=== PATIENT | female | born 2000 | race Two or more races ===

== ENCOUNTER 2024-08-16 16:45 | Emergency (ER) | payer MEDICAID, SELFPAY ==
[2024-08-16 16:45] VITALS: BMI 33.9
[2024-08-16 16:55] VITALS: BP 117/84; PULSE 103; RESP 20; TEMP 36.8; O2SAT 98
--- NOTE | 2024-08-16 17:03 | PD.EDRME ---
Rapid Medical Screening Exam RME Arrival date/time: 08/16/24 16:45 This is a case of 23-year-old female who came in in the emergency room due to abdominal pain nausea vomiting for 3 days no diarrhea no constipation Chief Complaint: Abdominal Pain Time Seen by Provider: 08/16/24 17:02 Vital signs: Vital Signs Temperature 98.3 F 08/16/24 16:55 Pulse Rate 103 H 08/16/24 16:55 Respiratory Rate 20 08/16/24 16:55 Blood Pressure 117/84 08/16/24 16:55 Pulse Oximetry (%) 98 08/16/24 16:55 Oxygen Delivery Method Room Air 08/16/24 16:55
[2024-08-16 17:21] LABS: Basophils % (Auto) 0 % (0-2.5); Eosinophils # (Auto) 0.3 Thou/mm3 (0.0-0.5); Eosinophils % (Auto) 3 % (0-10); Hematocrit 47.4 % (36.0-46.0); Hemoglobin 16.4 g/dL (12.0-16.0); Immature Granulocytes % (Auto) 0 % (0-0); Immature Granulocytes Auto 0.04 Thou/mm3 (0.00-0.00); Lymphocytes # (Auto) 1.2 Thou/mm3 (1.0-4.8); Lymphocytes % (Auto) 13 % (10-50); Mean Corpuscular HGB Conc 34.6 g/dl (31.0-37.0); Mean Corpuscular Hemoglobin 30.1 pg (25.0-35.0); Mean Corpuscular Volume 87 fL (80-100); Monocytes # (Auto) 0.7 Thou/mm3 (0.0-0.8); Monocytes % (Auto) 7 % (0-12); Neutrophils # (Auto) 7.4 Thou/mm3 (1.8-7.7); Neutrophils % (Auto) 76 % (37-80); Nucleated Red Blood Cell % 0 /100 WBC (0); Platelet Count 282 Thou/mm3 (140-440); RDW Standard Deviation 39.7 fL (36.4-46.3); Red Blood Count 5.45 Miln/mm3 (4.00-5.20); White Blood Count 9.7 Thou/mm3 (3.6-11.0)
[2024-08-16 17:27] LABS: Collection Type, Urine Clean Catch
[2024-08-16 17:31] LABS: HCG Qualitative,Urine Negative
[2024-08-16 17:38] LABS: Alanine Aminotransferase 48 U/L (10-49); Albumin, Serum 4.6 gm/dL (3.5-5.0); Albumin/Globulin Ratio 1.7 (1.2-2.2); Alkaline Phosphatase 82 U/L (46-116); Anion Gap 10 (7-16); BUN/Creatinine Ratio 10 Ratio (12-20); Bilirubin,Total 0.7 mg/dL (0.3-1.2); Blood Urea Nitrogen 9 mg/dL (9-23); Carbon Dioxide 24.1 mMol/L (20.0-31.0); Chloride 107 mMol/L (98-107); Creatinine (Component) 0.9 mg/dL (0.6-1.3); Globulin 2.7 gm/dL (2.3-3.5); Glucose 101 mg/dL (74-106); Lipase 27 U/L (12-53); Osmolality,Calculated 279 (275-295); Sodium 141 mMol/L (136-145); Total Protein 7.3 gm/dL (5.7-8.2); eGFR > 60 See Note
[2024-08-16 17:39] LABS: Bacteria,Urine Rare; Bilirubin,Urine Negative (Negative); Blood,Urine Negative (Negative); Color,Urine Yellow (Lt Yel-Yel); Glucose, Urine Negative (Negative); Ketones,Urine Trace (Negative); Leukocyte Esterase,Urine Positive (Negative); Nitrite,Urine Negative (Negative); Protein,Urine Trace (Neg - Trace); RBC,Urine 1 /hpf (0-3); Specific Gravity,Urine 1.031 (1.001-1.035); Squamous Epithelial Cell,Urine 13 /hpf (0-5); Urobilinogen,Urine Negative mg/dL (0.0-1.0); WBC,Urine 3 /hpf (0-5)
[2024-08-16 17:40] LABS: Clarity,Urine Hazy (Clear/Hazy)
--- NOTE | 2024-08-16 18:24 | PD.EDABDPN ---
ED Abdominal Pain RME/HPI General Chief Complaint: Abdominal Pain Stated complaint: N/V ABD PAIN Time seen by provider: 08/16/24 17:02 Arrival date/time: 08/16/24 16:45 Limitations: no limitations RME / HPI RME / HPI narrative: 08/16/24 16:45 This is a case of 23-year-old female who came in in the emergency room due to abdominal pain nausea vomiting for 3 days with intermittent diarrhea no constipation. no fever. no rectal bleeding. also having intermittent cramps with urination. Related Data Home Medications ?Medication ?Instructions ?Recorded ?Confirmed acetaminophen 500 mg tablet 500 mg PO Q6HR PRN PAIN #0 tabs 04/08/15 (Tylenol Extra Strength) Previous Rx's ?Medication ?Instructions ?Recorded ciprofloxacin HCl 500 mg tablet 500 mg PO Q12H 10 days #20 tabs 08/16/24 (Cipro) dicyclomine 10 mg capsule 10 mg PO TID #30 caps 08/16/24 ondansetron 4 mg disintegrating 4 mg PO Q8H PRN nausea and 08/16/24 tablet vomiting #10 tabs Allergies Allergy/AdvReac Type Severity Reaction Status Date / Time ferumoxytol (From Feraheme) AdvReac Severe Hypotension Verified 08/16/24 16:48 Review of Systems Review of Systems Systems Reviewed: All systems reviewed, normal except as documented Gastrointestinal Gastrointestinal: Reports as per HPI Genitourinary Genitourinary: Reports as per HPI and Denies abnormal menses Musculoskeletal Musculoskeletal: Denies muscle weakness ED Exam General Limitations: Present no limitations General appearance: Present alert and in no apparent distress Eye Eye exam: Present normal appearance, PERRL and EOMI Chest Chest inspection: Present normal inspection and symmetric chest wall rise Respiratory Respiratory exam: Present normal lung sounds bilaterally Cardiovascular Cardiovascular exam: Present regular rate, normal rhythm and normal heart sounds Abdominal Exam Abdominal exam: Present soft, tenderness (epigastric ttp and suprapubic ) and normal bowel sounds Extremities Exam Extremities exam: Present normal inspection and full ROM Back Exam Back exam: Present normal inspection and full ROM Psychiatric Psychiatric exam: Present normal affect and normal mood Skin Skin exam: Present warm, dry, intact and normal color Course Quality Measures none Orders Category Date Time Status CBC Stat Lab 08/16/24 17:10 Completed Comprehensive Metabolic Panel Stat Lab 08/16/24 17:10 Completed HCG Qualitative,Urine Stat Lab 08/16/24 17:21 Completed Lipase Stat Lab 08/16/24 17:10 Completed Urinalysis Stat Lab 08/16/24 17:21 Completed Ciprofloxacin HCl [Ciprofloxacin] Med 08/16/24 18:33 Discontinued 500 mg PO X1 ONE Ondansetron Odt [Zofran Odt] Med 08/16/24 18:33 Discontinued 4 mg PO X1 ONE Vital Signs Vital signs: Vital Signs Temperature 98.3 F 08/16/24 16:55 Pulse Rate 103 H 08/16/24 16:55 Respiratory Rate 20 08/16/24 16:55 Blood Pressure 117/84 08/16/24 16:55 Pulse Oximetry (%) 98 08/16/24 16:55 Oxygen Delivery Method Room Air 08/16/24 16:55 Abdominal Pain MDM MDM Narrative MDM Narrative:: 21-year-old female presents for abdominal pain nausea vomiting diarrhea and some bladder symptoms. No surgical findings today. Advised follow-up with PCP return to ER symptoms worsen Patient data External records reviewed:: [facility] previous records Clinical information provided by:: patient Social determinants that could affect healthcare access:: none Patient has the following chronic illnesses:: None How is presenting disease/condition affected by chronic disease/condition?: no chronic disease Evaluation data The following diagnostics were reviewed and interpreted by me:: lab results Lab and/or radiology exams considered but not ordered:: Ultrasound was considered however not warranted given clinical picture Interpretation Summary: CBC, CMP, lipase within normal limits. UA was suggestive of UTI Medications / Prescriptions Medications or Prescriptions considered but not ordered:: antibiotic was considered intramuscular but patient would rather start other medicines for home Medication administrations:: Medication Administration History Discontinued Medications Ciprofloxacin (Ciprofloxacin Hcl 250 Mg Tablet) 500 mg PO X1 ONE Stop: 08/16/24 18:34 Last Admin: 08/16/24 18:44 Dose: 500 mg Documented By: ELIAS Ondansetron HCl (Ondansetron Odt 4 Mg Tabrap) 4 mg PO X1 ONE; Protocol Stop: 08/16/24 18:34 Last Admin: 08/16/24 18:44 Dose: 4 mg Documented By: ELIAS 1 dose of antibiotic and antiemetics given Consultations Consultation(s) initiated? (list below): No Diagnosis Differential diagnosis abdominal pain: abdominal pain, calculus of kidney, constipation, diverticulitis, gastroenteritis and pancreatitis Most likely diagnosis given after review of the tests above:: uti diarrhea vomiting Admission Indicated Admission indicated?: not indicated Admission Request Was there a request for admission?: No Disposition Plan Disposition Plan: Discharge Discharge Attestation Discharge Attestation: The patient and all family members were given an opportunity to ask questions and understood the discharge instructions. Discharge instructions specifically effects, indications for sooner follow up or return to the emergency department, and the expected course of current diagnosis. Patient condition: Stable Discharge Plan Plan Patient Disposition: HOME (Self Care) Discharge Disposition comment: Follow-up with PCP in 2 to 3 days Prescriptions/Referrals Prescriptions/Med Rec: New ciprofloxacin HCl [Cipro] 500 mg tablet 500 mg PO Q12H 10 Days Qty: 20 0RF ondansetron 4 mg tablet,disintegrating 4 mg PO Q8H PRN (Reason: nausea and vomiting) Qty: 10 0RF dicyclomine 10 mg capsule 10 mg PO TID Qty: 30 0RF No Action acetaminophen [Tylenol Extra Strength] 500 MG tablet 500 mg PO Q6HR PRN (Reason: PAIN) Qty: 0 Referrals: No Primary/Family,Physician [Primary Care Provider] - In 1 week Problem List Clinical Impression: UTI (urinary tract infection), Diarrhea, Vomiting Patient/Caregiver Discharge Instructions Education Materials: Urinary Tract Infections in Women, ED Vomiting (Adult), ED Vomiting and Diarrhea ... Print Language: Lebanese Stand Alone Forms: Kelly Award Info., Patient Portal Info Letter PA/SELF SEALING [employer] REPAIRER Supervising Physician PA/SELF SEALING [employer] REPAIRER Supervising Physician: Dr. Ball
[2024-08-16] MEDS: ONDANSETRON ODT 4 MG TABRAP PO (18:44)
[2024-08-16] MEDS: CIPROFLOXACIN HCL 250 MG TABLET 500 MG PO (18:44)
== END 2024-08-16 18:54 | disposition home or self-care (01) ==
PROVIDERS: Nurse Practitioner Family; Emergency Provider Emergency Medicine
DX: N39.0 Urinary tract infection, site not specified (principal); R19.7 Diarrhea, unspecified; R11.2 Nausea with vomiting, unspecified
CPT/HCPCS: 36415; 80053; 81001; 81025; 83690; 85025; 99283; Q0162; A9270